=== PATIENT | female | born 1965 | race Caucasian/White ===

== ENCOUNTER 2019-02-25 09:45 | Emergency (ER) | payer OTHER, SELFPAY ==
[~2019-02-25] VITALS: Ht 165.1 cm; Wt 80.7 kg
--- NOTE | 2019-02-25 09:46 | NUR ---
ARRIVAL PATIENT TO ROOM 5, AMBULATORY STATES THAT SHE WAS WORKING LAST NIGHT AND TWISTED WRONG ON HER LEFT LEG, SHE HEARD A "POP" AND SAID IT NOW HURTS FOR HER TO FLEX HER ANKLE ON THE LEFT SIDE. ASSESSMENT COMPLETED, AWAITING MD HINES, CONNECTED TO ALL MONITORS.
[2019-02-25 10:07] VITALS: BP 130/63
--- NOTE | 2019-02-25 10:17 | ER.PDOC ---
General Chief Complaint: Extremities Stated Complaint: LEFT LEG PAIN Time seen by MD: 10:16 Source: patient Exam Limitations: no limitations History of Present Illness Initial Comments 53 Y/O F WITH HX STRAINED LEFT CALF LAST PM AT WORK, FELT POP WHEN TRYING TO REACT TO MOVING GATE, NO OTHER COMPLAINTS. NO CHEST PAIN, NO SOB. Onset: yesterday Where: work Context: twist Severity: moderate Past Medical History Medical History: COPD, diabetes, high cholesterol, hypertension Surgical History: tubal LMP (females 10-50): tubal Family History Significant Family History: no pertinent family hx Social History Smoking: cigarettes, greater than 1 pack/day Alcohol Use: none Drug Use: none Reviewed Nursing Reviewed: Vital Signs, Abn. Noted, Nursing Assessment Review of Systems Constitutional: no symptoms reported EENTM: no symptoms reported Respiratory: no symptoms reported Cardiovascular: no symptoms reported Gastrointestinal: no symptoms reported Genitourinary: no symptoms reported Musculoskeletal: muscle pain, other Skin: no symptoms reported Psychiatric/Neurological: no symptoms reported Physical Exam General Appearance: Alert, No Apparent Distress Foot: nml inspection, non-tender, nml color/temp, skin intact Ankle: nml inspection, non-tender, nml ROM, no joint swelling, skin intact Knee: nml inspection, non-tender, nml ROM, no joint swelling Thigh/Hip: nml inspection Gait: limited by pain Neuro/Vasc/Tendon: sensation nml, motor nml, no vascular compromise, tendon function nml Skin: warm/dry Comments LEFT POST CALF TENDER TO PALP, NO DEFORMITY, LEFT LEG N/V/S INTACT, ACHILLES TENDON INTACT. Results/Orders Results/Orders Vital Signs Date Time Temp Pulse Resp B/P (MAP) Pulse Ox O2 Delivery O2 Flow Rate FiO2 02/25/19 10:07 98.4 75 18 130/63 (85) 96 Room Air 98.4 02/25/19 10:03 98.4 76 18 96 Room Air 98.4 02/25/19 10:03 98.4 75 18 98.4 Progress Progress DIFF DX IN DETAIL, FOLLOW UP WITH ORTHO DR IF NO BETTER. Departure Time of Disposition: 10:58 Disposition: 01 HOME, SELF-CARE Impression: Primary Impression: Muscle strain of left lower leg Condition: Stable Patient Instructions: Muscle Strain Referrals: PCP,UNKNOWN (PCP) PRIMARY CARE PROVIDER AYE GORDON MD Additional Instructions: TO ED NEEDED, IF NO BETTER FOLLOW UP WITH [facility] POOL X 5-7 DAYS. Duration or Time Spent with Pa: 15 MIN JOSEP GATES DO Feb 25, 2019 10:17
[2019-02-25 11:15] VITALS: BP 130/63
== END 2019-02-25 11:05 | disposition home or self-care (01) ==
LOC: ER 09:45
DX: S86.912A Strain of unspecified muscle(s) and tendon(s) at lower leg level, left leg, initial encounter (principal); J44.9 Chronic obstructive pulmonary disease, unspecified; I10 Essential (primary) hypertension; F17.210 Nicotine dependence, cigarettes, uncomplicated; E78.00 Pure hypercholesterolemia, unspecified; E11.9 Type 2 diabetes mellitus without complications; X50.9XXA Other and unspecified overexertion or strenuous movements or postures, initial encounter; Y93.89 Activity, other specified; Y92.69 Other specified industrial and construction area as the place of occurrence of the external cause; Y99.0 Civilian activity done for income or pay
CPT/HCPCS: 99281